=== PATIENT | female | born 1930 | race Caucasian/White ===

== ENCOUNTER 2016-06-02 18:54 | Observation (INO) | payer OTHER ==
[~2016-06-02] VITALS: Ht 157.5 cm; Wt 61.2 kg
[~2016-06-02 18:54] MED LIST: Atorvastatin Calcium PO; CYAN500T2 PO; LEVO50TA7 PO; LEVO75TA6 PO; LISI-646 PO; TIMO0.5S3 EACHEYE; TRAV0.007 OP
[2016-06-02 20:42] LABS: Basophils # (auto) 0 uL; Basophils % (auto) 0.3 % (0.0-2.0); Eosinophils # (auto) 0.1 uL; Eosinophils % (auto) 0.6 % (0.0-7.0); Hematocrit 44.5 % (36.0-46.0); Hemoglobin 14.7 g/dL (12.2-16.2); Lymphocytes # (auto) 1.5 uL; Lymphocytes % (auto) 16.8 % (10.0-50.0); Mean Corpuscular Hemoglobin 30.6 pg (28.0-32.0); Mean Corpuscular Volume 92.6 fL (80.0-100.0); Mean Platelet Volume 8.1 fL (7.4-10.4); Monocytes # (auto) 0.6 uL; Monocytes % (auto) 6.5 % (0.0-12.0); Neutrophils # (auto) 6.9 uL; Neutrophils % (auto) 75.8 % (37.0-80.0); Platelet Count (auto) 328 10^3/uL (140-450); Red Cell Distribution Width 13.5 % (11.6-16.0); White Blood Cell 9.1 10^3/uL (4.4-10.8)
[2016-06-02 20:56] LABS: INR 1.07 (0.9-1.15); Partial Thromboplastin Time 25.4 sec (22.64-33.71); Prothrombin Time 11.6 sec (9.37-12.3)
[2016-06-02 20:58] LABS: Albumin 3.4 g/dL (3.4-5.0); Anion Gap 10 (5-15); Aspartate Aminotransferase 20 U/L (15-37); Blood Urea Nitrogen 23 mg/dL (7-18); Calcium 8.7 mg/dL (8.5-10.1); Carbon Dioxide 24 mmol/L (21-32); Chloride 109 mmol/L (98-107); GFR African American 124 mL/min; GFR Non-African American 102 mL/min; Glucose 109 mg/dL (74-106); Magnesium 2.3 mg/dL (1.6-2.6); Potassium 4.1 mmol/L (3.5-5.1); Sodium 143 mmol/L (136-145)
[2016-06-02 21:03] LABS: Alkaline Phosphatase 131 U/L (45-117); Bilirubin, Total 0.4 mg/dL (0.2-1.0); Total Protein 7.4 g/dL (6.4-8.2)
[2016-06-02] MEDS ORDERED: ACETAMINOPHEN 325 MG TAB PO ONE (22:00)
[2016-06-02 22:10] VITALS: BP 139/71
== END 2016-06-02 22:30 | disposition home or self-care (01) | DRG 552 ==
LOC: EDBD 18:54 → ER 19:01 → OVERFLOW 20:04 → ER 22:30
PROVIDERS: ADMIT Family Medicine; ATTEND Family Medicine
DX: S13.4XXA Sprain of ligaments of cervical spine, initial encounter (principal); S09.90XA Unspecified injury of head, initial encounter; R42 Dizziness and giddiness; E03.9 Hypothyroidism, unspecified; Z98.890 Other specified postprocedural states; Z90.710 Acquired absence of both cervix and uterus; W19.XXXA Unspecified fall, initial encounter; Y99.8 Other external cause status; Y92.89 Other specified places as the place of occurrence of the external cause; Y93.89 Activity, other specified
CPT/HCPCS: 36415; 70450; 71010; 72125; 80053; 83735; 84484; 85025; 85610; 85730; 93005; 99285; G0378